=== PATIENT | male | born 1965 | race African-American/Black ===

== ENCOUNTER 2017-04-14 15:21 | Emergency (ER) | payer OTHER ==
[~2017-04-14] VITALS: Ht 185.4 cm; Wt 105.2 kg
[2017-04-14] MEDS ORDERED: LOPRESSOR100 M1 PO (15:43)
[2017-04-14] MEDS ORDERED: ADALAT CC60 MG PO (15:44)
[2017-04-14] MEDS ORDERED: LASIX 40 MG TAB40 M2 PO (15:44)
[2017-04-14] MEDS ORDERED: PLAVIX 75 MG TA75 M1 PO (15:45)
[2017-04-14 17:18] LABS: ABSOLUTE NEUTROPHILS 9.7 thou/uL (1.4-8.2); BASOPHILS 0.8 % (0.0-2.0); EOSINOPHILS 0.8 % (0.0-3.0); HEMATOCRIT 40.1 % (42.0-52.0); HEMOGLOBIN 13.5 gm/dL (14.0-18.0); LYMPHOCYTES 14.1 % (24.0-44.0); MCH 27.4 pg (26.0-34.0); MCHC 33.7 g/dL (28.0-37.0); MCV 81.1 fL (80.0-100.0); MONOCYTES 7.8 % (1.0-8.0); PLATELET COUNT 436 thou/uL (150-400); POLYS 76.5 % (36.0-66.0); RBC 4.94 mil/uL (4.50-6.00); RDW 15.1 % (10.5-14.5); WBC 12.7 thou/uL (4.0-11.0)
[2017-04-14 17:28] LABS: CALCIUM 9.1 mg/dL (8.5-10.1); POTASSIUM 4.6 mmol/L (3.5-5.1)
[2017-04-14 17:34] LABS: ALBUMIN 2.8 g/dL (3.4-5.0); TOTAL BILIRUBIN 0.3 mg/dL (<0.1-1.0); URIC ACID* 9.9 mg/dL (2.6-7.2)
[2017-04-14 18:34] LABS: COLOR YELLOW; SOURCE RIGHT KNEE; TOTAL VOLUME 70 mL
[2017-04-14 18:35] LABS: CLARITY CLOUDY
[2017-04-14 18:42] LABS: URINE BILIRUBIN NEGATIVE (Negative); URINE BLOOD TRACE (Negative); URINE CLARITY CLEAR; URINE COLOR YELLOW; URINE GLUCOSE-RANDOM* NEGATIVE (Negative); URINE KETONES NEGATIVE (Negative); URINE LEUKOCYTES-REFLEX NEGATIVE (Negative); URINE NITRITE-REFLEX NEGATIVE (Negative); URINE PROTEIN (DIPSTICK) 1+ (Negative); URINE UROBILINOGEN 0.2 E.U./dl (0.2-1.0)
[2017-04-14 18:43] LABS: BACTERIA-REFLEX None Seen /HPF (None Seen); CRYSTALS None Seen /LPF (None Seen); MUCUS 0-3 Light strn/LPF (None Seen); SQUAMOUS 4-10 Moderate /LPF (0-3); URINE RBC 0-2 Rare /HPF (0-2); URINE WBC-REFLEX 6-15 Few /HPF (0-5)
[2017-04-14 18:44] LABS: HYALINE CASTS 4-10 Moderate /LPF (None Seen); WBC CLUMPS Few (None Seen)
[2017-04-14] MEDS ORDERED: HYDROCODONE-AP1 EAC6 PO (18:48)
[2017-04-14] MEDS ORDERED: PREDNISONE 20 M20 MG PO (18:48)
[2017-04-14 18:55] LABS: BF NUCLEATED CELLS 31378; BF RBC 1635
[2017-04-14 19:30] LABS: BF CRYSTALS No Crystals seen; SOURCE RIGHT KNEE
[2017-04-14 20:44] LABS: BF MACROPHAGE 11; BF NEUTROPHILS 89
[2017-04-15 09:07] LABS: SOURCE RIGHT KNEE
[2017-04-15 13:10] LABS: BODY FLUID GLUCOSE 51 mg/dL (()); BODY FLUID PROTEIN 5.2 g/dL (())
[2017-04-16 10:08] LABS: ANA INTERPRETATION Negative (Negative)
[2017-04-16 12:10] LABS: SYPHILIS AB Negative (Negative)
== END 2017-04-14 19:14 | disposition home or self-care (01) ==
LOC: ER 15:21
PROVIDERS: Emergency Medicine
DX: M13.0 Polyarthritis, unspecified (principal); E79.0 Hyperuricemia without signs of inflammatory arthritis and tophaceous disease; I10 Essential (primary) hypertension